=== PATIENT | male | born 1980 | race Caucasian/White ===

== ENCOUNTER 2020-01-05 04:58 | Emergency (ER) | payer OTHER, SELFPAY ==
[2020-01-05 05:04] VITALS: BP 120/60; PULSE 70; RESP 18; TEMP 36.5; O2SAT 99
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
--- NOTE | 2020-01-05 05:43 | PC.NURSE ---
has had Hep B vaccine, HIV testing in past
[2020-01-05 06:00] LABS: Basophils Absolute Auto 0.09 K/mm3 (0.00-0.10); Basophils Percent Auto 1.3 % (0.0-1.0); Eosinophils Absolute Auto 0.15 K/mm3 (0.02-0.50); Eosinophils Percent Auto 2.2 % (1.0-6.0); Hematocrit 45.3 % (40.0-54.0); Hemoglobin 15.2 g/dL (14.0-18.0); Immature Granulocyte Absolute 0.03 K/mm3 (0.00-0.00); Immature Granulocyte Percent A 0.4 % (0.0-0.0); Lymphocytes Absolute Auto 2.01 K/mm3 (1.10-4.50); Lymphocytes Percent Auto 29.3 % (18.0-42.0); Mean Corpuscular HGB Conc 33.6 g/dL (32.0-36.0); Mean Corpuscular Hemoglobin 29.5 pg (27.0-31.0); Mean Corpuscular Volume 87.8 fL (78.0-102.0); Mean Platelet Volume 10.4 fl (8.7-11.0); Monocytes Absolute Auto 0.52 K/mm3 (0.10-0.90); Monocytes Percent Auto 7.6 % (2.0-11.0); Neutrophils Absolute Auto 4.1 K/mm3 (1.7-7.2); Neutrophils Percent Auto 59.2 % (50.0-70.0); Nucleated Red Blood Cells Absolute Auto 0.03 K/mm3 (0.00-0.00); Nucleated Red Blood Cells Perc 0.4 % (0-0.0); Platelet Count Result 283 K/mm3 (150-420); Red Blood Count 5.16 M/mm3 (4.70-6.10); Red Cell Distribution Width 12.2 % (11.6-14.4); White Blood Count 6.9 K/mm3 (4.8-10.8)
[2020-01-05 06:07] VITALS: BP 118/60; PULSE 80; RESP 18; TEMP 36.6; O2SAT 97
[2020-01-05 06:16] LABS: Alanine Aminotransferase 60 U/L (16-63); Albumin Level 4.2 g/dL (3.4-5.0); Alkaline Phosphatase 89 U/L (46-116); Anion Gap 11 mmol/L (8-16); Aspartate Amino Transferase 37 U/L (15-37); Blood Urea Nitrogen 18 mg/dL (7-18); Calcium 9.1 mg/dL (8.5-10.1); Carbon Dioxide 23 mmol/L (21-32); Chloride 104 mmol/L (98-108); Estimated CRCL calculation 104 ml/min; Estimated Glomerular Filt Rate > 60; Glucose 114 mg/dL (70-99); Osmolality Calculated 288 mOsm/kg (285-295); Potassium 3.6 mmol/L (3.5-5.1); Sodium 138 mmol/L (136-145); Total Protein 7.7 g/dL (6.4-8.2)
[2020-01-05 06:26] LABS: HIV 1 P24 AG Negative (Negative); HIV 1/2 AB Negative (Negative)
[2020-01-08 19:03] LABS: Hepatitis B Surface Antibody Reactive (Nonreactive); Hepatitis B Surface Antigen Nonreactive (Nonreactive); Hepatitis C Signal to Cutoff 0.01 ratio (<1.00); Hepatitis C Virus Antibody Nonreactive (Nonreactive)
== END 2020-01-05 06:08 | disposition home or self-care (01) ==
PROVIDERS: Emergency Provider Emergency Medicine; PCP Family Medicine
DX: Z77.21 Contact with and (suspected) exposure to potentially hazardous body fluids (principal)
CPT/HCPCS: 36415; 80053; 85025; 86703; 86706; 99282; 99283

== ENCOUNTER 2020-08-07 22:11 | Emergency (ER) | payer OTHER, SELFPAY ==
[2020-08-07 22:15] VITALS: BP 149/107; PULSE 102; RESP 20; TEMP 36.6; O2SAT 98
[2020-08-07 22:25] VITALS: BP 139/93
[2020-08-07 22:46] VITALS: BP 129/87; PULSE 74; RESP 20; O2SAT 98
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
[2020-08-07 23:07] LABS: Amphetamine Screen Urine Negative (Negative); Barbiturate Screen Urine Negative (Negative); Benzodiazepines Screen Urine Negative (Negative); Cannabinoid Screen Urine Negative (Negative); Cocaine Screen Urine Negative (Negative); Methadone Screen Urine Negative (Negative); Opiate Screen Urine Negative (Negative); Phencyclidine Screen Urine Negative (Negative)
[2020-08-07 23:19] LABS: Ethanol < 3 mg/dL (0-6)
[2020-08-07 23:47] VITALS: BP 133/93; PULSE 100; RESP 18; O2SAT 99
[2020-08-08] MEDS: ZOLPIDEM TARTRATE (*CRX) 5 MG TABLET 10 MG (00:08)
== END 2020-08-08 00:12 | disposition home or self-care (01) ==
PROVIDERS: Emergency Provider Emergency Medicine; PCP Family Medicine
DX: Z00.00 Encounter for general adult medical examination without abnormal findings (principal)
CPT/HCPCS: 36415; 80307; 99282; 99283; A9270

== ENCOUNTER 2022-03-18 12:51 | Outpatient (RCR) | payer BC, SELFPAY ==
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
--- NOTE | 2022-05-18 09:21 | PCPTNOTE ---
05/18/22: Patient has not been seen for skilled PT since 04/06/22. He is discharged from formal PT.
== END 2022-04-06 09:36 | disposition home or self-care (01) ==
LOC: CHSPT 12:51
DX: M54.12 Radiculopathy, cervical region (principal)
CPT/HCPCS: 97012; 97014; 97110; 97140; 97161; G0283